=== PATIENT | female | born 1975 | race Caucasian/White ===

== ENCOUNTER 2023-01-30 13:41 | Inpatient (IN) | payer MEDICAID, OTHER ==
[~2023-01-30] VITALS: Ht 167.6 cm; Wt 77.1 kg
[~2023-01-30 13:41] MED LIST: TNFMISC
[2023-01-30] MEDS ORDERED: SODIUM CHLORIDE 0.9% 2,000 ML IV ONE (14:00)
[2023-01-30 14:32] LABS: COVID AG,FIA SOURCE NASAL SWAB
[2023-01-30 14:45] LABS: ANION GAP 8 mmol/L (8-16); CALCIUM, TOTAL 9.5 mg/dL (8.8-10.5); CARBON DIOXIDE 29 mmol/L (22-29); CHLORIDE 99 mmol/L (98-107); CREATININE 0.74 mg/dL (0.60-1.30); GLOMERULAR FILTR. RATE CALC > 60 mL/min (>60); GLUCOSE,RANDOM 108 mg/dL (70-110); POTASSIUM 3.3 mmol/L (3.5-5.1); SODIUM SERUM 136 mmol/L (136-145); UREA NITROGEN, BLOOD 7 mg/dL (7-18)
[2023-01-30 14:47] LABS: BASOPHILS % (AUTO) 0.3 % (0.0-2.0); EOSINOPHILS % (AUTO) 0.8 % (1.0-6.0); HEMATOCRIT 35.8 % (36-46); HEMOGLOBIN 11.8 g/dL (12.0-16.0); LYMPHOCYTES # (AUTO) 1.6 K/uL (1.0-4.8); LYMPHOCYTES % (AUTO) 24.8 % (22.0-44.0); MEAN CORPUSCULAR HGB CONC 33.1 G/dL (31.0-37.0); MEAN CORPUSCULAR VOLUME 88 fL (80-100); MONOCYTES # (AUTO) 0.6 K/uL (0.1-1.0); MONOCYTES % (AUTO) 9.6 % (2.0-9.0); NEUTROPHILS # (AUTO) 4.1 K/uL (1.8-7.7); NEUTROPHILS % (AUTO) 64.5 % (40.0-70.0); PLATELET COUNT (AUTO) 371 K/uL (150-450); RED BLOOD CELL COUNT(AUTO) 4.08 MIL/uL (4.00-5.20); RED CELL DISTRIBUTION WIDTH 14.4 % (11.5-14.5); WHITE BLOOD COUNT (AUTO) 6.3 K/uL (4.5-11.0)
[2023-01-30 14:51] LABS: ACETAMINOPHEN < 2 mcg/mL (10-30); ALANINE AMINOTRANSFERASE 23 U/L (12-78); ALBUMIN 4.1 g/dL (3.4-5.0); ALKALINE PHOSPHATASE 65 U/L (46-116); ASPARTATE AMINOTRANSFERASE 24 U/L (15-37); BILIRUBIN,TOTAL 0.3 mg/dL (0.1-1.0); LIPASE 52 U/L (16-77); TOTAL PROTEIN, SERUM 8.4 g/dL (6.4-8.2)
[2023-01-30 14:52] LABS: TROPONIN I-HIGH SENSITIVITY 8 ng/L (<51)
[2023-01-30 14:56] LABS: ALCOHOL, BLOOD (SERUM) < 3 mg/dL (0-10)
[2023-01-30 14:58] LABS: SARS-COV2 (COVID) ANTIGEN,FIA Negative (Negative)
[2023-01-30 15:01] LABS: SALICYLATE 1.3 mg/dL (2.8-20.0)
[2023-01-30 15:56] LABS: APPEARANCE,URINE CLEAR (CLEAR); BILIRUBIN,URINE NEGATIVE (NEGATIVE); COLOR,URINE COLORLESS (YELLOW); GLUCOSE, URINE (UA) NEGATIVE (NEGATIVE); LEUKOCYTE ESTERASE ,URINE NEGATIVE (NEGATIVE); NITRATE,URINE NEGATIVE (NEGATIVE); OCCULT BLOOD,URINE NEGATIVE (NEGATIVE); PH,URINE 5.5 (5.0-8.0); PH,URINE DRUG SCREEN 5.5 (5.0-8.0); PROTEIN,URINE NEGATIVE (NEGATIVE); SPECIFIC GRAVITIY, URINE 1.006 (1.003-1.030); UROBILINOGEN,URINE <=1.0 mg/dL (<=1.0)
[2023-01-30 16:02] LABS: AMPHET/METH SCREEN,URINE NEGATIVE (NEGATIVE); BARBITURATE SCREEN, URINE NEGATIVE (NEGATIVE); BENZODIAZEPINES SCREEN,URINE NEGATIVE (NEGATIVE); CANNABINOID SCREEN,URINE NEGATIVE (NEGATIVE); COCAINE SCREEN,URINE NEGATIVE (NEGATIVE); METHADONE SCREEN, URINE NEGATIVE (NEGATIVE); OPIATE SCREEN,URINE NEGATIVE (NEGATIVE); PHENCYCLIDINE SCREEN,URINE NEGATIVE (NEGATIVE)
[2023-01-30 16:03] LABS: ALCOHOL, URINE DRUG SCREEN NEGATIVE (NEGATIVE)
[2023-01-30 16:29] LABS: SQUAMOUS EPITHELIAL CELL,UR Few /LPF (None Seen)
[2023-01-30 16:31] LABS: BACTERIA,URINE None Seen /HPF (None Seen); RBC,URINE None Seen /HPF (0-2); WBC,URINE None Seen /HPF (0-5)
[2023-01-30] MEDS ORDERED: ZOLPIDEM TARTRATE 10 MG TABLET PO PRN (17:45)
[2023-01-30] MEDS: OLANZapine 5 MG RAPDIS TABLET PO PRN ×2 (19:10→23:05)
[2023-01-30] MEDS: LORazepam 2 MG TABLET PO PRN ×2 (19:10→23:05)
[2023-01-30] MEDS ORDERED: POTASSIUM CHLORIDE 10% 40 MEQ/30 ML LIQUID UDCUP PO ONE (19:15)
[2023-01-31] MEDS: LORazepam 2 MG TABLET PO PRN (05:37)
[2023-01-31] MEDS: OLANZapine 5 MG RAPDIS TABLET PO PRN (05:45)
[2023-01-31 11:43] VITALS: BP 134/85; PULSE 89; RESP 18; TEMP 97.9; O2SAT 98
[2023-01-31] MEDS ORDERED: HydrOXYzine PAMOATE 50 MG CAPSULE PO PRN (16:00)
[2023-01-31] MEDS ORDERED: GuaiFENesin/D-METHORPHAN [SUGAR-FREE] 200-20MG/10 ML SYRUP UDCUP PO PRN (16:00)
[2023-01-31] MEDS ORDERED: QUEtiapine FUMARATE 100 MG TABLET PO PRN (16:00)
[2023-01-31] MEDS ORDERED: MAG HYDROX/ALUMINUM HYD/SIMETH ES 30 ML SUSPENSION UDCUP PO PRN (16:00)
[2023-01-31] MEDS ORDERED: MAGNESIUM HYDROXIDE SUSPENSION 30 ML UDCUP PO PRN (16:00)
[2023-01-31] MEDS ORDERED: LOPERAMIDE HCL 2 MG CAPSULE PO PRN (16:00)
[2023-01-31] MEDS ORDERED: PROMETHAZINE HCL 25 MG TABLET PO PRN (16:00)
[2023-01-31] MEDS ORDERED: ACETAMINOPHEN 325 MG TABLET PO PRN (16:00)
[2023-01-31] MEDS ORDERED: TUBERCULIN, PURIFIED PROTEIN DERIVATIVE 5 TU/0.1 ML SYRINGE ID ONE (16:00)
[2023-01-31] MEDS: THIAMINE 100 MG TABLET PO SCH (17:27)
[2023-01-31] MEDS: MELATONIN 5 MG TABLET PO SCH (20:13)
[2023-01-31] MEDS ORDERED: QUEtiapine FUMARATE 200 MG TABLET PO SCH (21:00)
[2023-01-31 22:25] VITALS: BP 107/64; PULSE 89; RESP 18; TEMP 97.5; O2SAT 89
[2023-02-01 08:24] VITALS: BP 124/92; PULSE 97; RESP 17; TEMP 97.5; O2SAT 100
[2023-02-01 08:27] LABS: HEMOGLOBIN A1C 5.8 % (3.8-5.6)
[2023-02-01] MEDS: OMEGA-3/DHA/EPA/FISH OIL 1,000 MG CAPSULE PO SCH (08:37)
[2023-02-01] MEDS: FOLIC ACID 1 MG TABLET PO SCH (08:37)
[2023-02-01] MEDS: THIAMINE 100 MG TABLET PO SCH ×2 (08:37→16:34)
[2023-02-01] MEDS: ESCITALOPRAM OXALATE 10 MG TABLET PO SCH (08:37)
[2023-02-01] MEDS: MULTIVITAMINS WITH MINERALS, THERAPEUTIC TABLET PO SCH (08:37)
[2023-02-01 08:43] LABS: CHOL/HDL RATIO 2.2 (3.9-5.7); FREE T4 (FREE THYROXINE) 1.34 ng/dL (0.76-1.46); THYROID STIMULATING HORMONE 1.04 uIU/mL (0.36-3.74)
[2023-02-01] MEDS: NALTREXONE HCL 50 MG TABLET PO SCH (08:44)
[2023-02-01] MEDS ORDERED: OMEG-135 PO (15:36)
[2023-02-01] MEDS ORDERED: MELA5TAB40 PO (15:36)
[2023-02-01] MEDS ORDERED: ESCI-8 PO (15:36)
[2023-02-01] MEDS ORDERED: QUET200T30 PO (15:36)
[2023-02-01] MEDS: MELATONIN 5 MG TABLET PO SCH (20:13)
[2023-02-01] MEDS ORDERED: QUEtiapine FUMARATE 200 MG TABLET PO SCH (21:00)
[2023-02-01 21:10] VITALS: BP 132/95; PULSE 82; RESP 17; TEMP 98.2; O2SAT 100
[2023-02-01 22:26] LABS: GLUCOMETER DEV NAME(LOC) BV2S.; GLUCOSE,POINT OF CARE 121 MG/DL (70-110)
[2023-02-02 06:06] LABS: HEPATITIS C AB (EIA) Non Reactive (Non Reactive)
[2023-02-02 08:25] VITALS: BP 125/79; PULSE 85; RESP 18; TEMP 96.4; O2SAT 98
[2023-02-02] MEDS: MULTIVITAMINS WITH MINERALS, THERAPEUTIC TABLET PO SCH (09:05)
[2023-02-02] MEDS: FOLIC ACID 1 MG TABLET PO SCH (09:05)
[2023-02-02] MEDS: NALTREXONE HCL 50 MG TABLET PO SCH (09:05)
[2023-02-02] MEDS: ESCITALOPRAM OXALATE 10 MG TABLET PO SCH (09:05)
[2023-02-02] MEDS: THIAMINE 100 MG TABLET PO SCH (09:05)
[2023-02-02] MEDS: OMEGA-3/DHA/EPA/FISH OIL 1,000 MG CAPSULE PO SCH (09:05)
== END 2023-02-02 15:45 | disposition home or self-care (01) | DRG 750 ==
LOC: EMS 13:43 → B2S 01-31 08:50
PROVIDERS: ADMIT Psychiatry & Neurology Psychiatry; ATTEND Psychiatry & Neurology Psychiatry
DX: F25.9 Schizoaffective disorder, unspecified (principal); F29 Unspecified psychosis not due to a substance or known physiological condition; E87.6 Hypokalemia; F32.A Depression, unspecified; Z20.822 Contact with and (suspected) exposure to COVID-19
CPT/HCPCS: 80053; 80061; 80307; 81001; 82962; 83036; 83605; 83690; 84439; 84443; 84484; 84703; 85025; 86592; 86803; 87340; 93005; 99285; G0480; G0481; J7030; Q9967